=== PATIENT | male | born 1975 | race Hispanic/Latino ===

== ENCOUNTER 2017-03-01 22:02 | Inpatient (IN) | payer OTHER ==
[~2017-03-01] VITALS: Ht 157.5 cm; Wt 68.0 kg
--- NOTE | 2017-03-02 01:30 | NUR ---
PT ARRIVED ON FLOOR FROM ED AT AROUND 0105. PT IS ALERT AND ORIENTED. PT HAS BOWEL TONES PRESENT IN ALL QUADRANTS AND IS PASSING GAS. V/S ARE WDL. PT DENIES PAIN AND N/V AT THIS TIME. NO OTHER ISSUES NOTED AT THIS TIME. LR IS GOING AT 125ML/HR, NG TUBE WAS PLACED AND IS GOING AT LOW INTERMITTEN SUCTION.
--- NOTE | 2017-03-02 03:30 | NUR ---
PATIENT IN BED SLEEPING. SEEMS OKAY.
--- NOTE | 2017-03-02 05:12 | NUR ---
PT HAS BEEN ON THIS FLOOR SINCE 0105. NG TUBE OUTPUT HAS BEEN SMALL. PLEASE SEE I&O'S AT 0600. IVF LR IS GOING AT 125ML/HR. PT HAS A SOAR THROAT FROM THE NG TUBE. OTHERWISE PT DENIES PAIN AND N/V. PT HAS NORMAL BOWEL TONES IN ALL FOUR QUADRANTS. PT STATED THAT HE IS PASSING GAS. V/S WERE WDL SO FAR. NO NEW ISSUES NOTED AT THIS TIME.
--- NOTE | 2017-03-02 06:12 | NUR ---
NG TUBE OUTPUT SINCE ARRIVAL ON MS FLOOR UNTIL 0600 HAS BEEN 100ML, CLEAR TO GEEN IN COLOR.
--- NOTE | 2017-03-02 07:28 | NUR ---
RECIEVED REPORT FROM DAY SHIFT NURSE. PT RESTING IN BED. CORRECTIONAL OFFICERS AT BEDSIDE. PT DENIES NEEDS. OFFICERS STATE THEY WILL CALL IF PT NEEDS ANYTHING. NGT IN PLACE LOW INT. SUCTION. IVF INFUSING W/O DIFFICULTY.
--- NOTE | 2017-03-02 08:45 | NUR ---
PT RESTING IN BED. TWO CORRECTIONAL OFFICERS AT BEDSIDE. IVF INFUSING W/O DIFFICULTY. NGT IN PLACE, ABOUT 100CC GREEN BILE IN CANISTER. OFFERED TOILETING. PT STATES PAIN IS AT A TOLERABLE LEVEL. PT DENIES NEEDS AT THIS TIME. PT KNOWS TO ASK OFFICERS FOR NURSE.
--- NOTE | 2017-03-02 09:13 | NUR ---
PT IS RESTING IN BED SAFELY WITH RESTRAINTS ON AND TWO GUARDS IN ROOM. PT WAS GIVEN A WARM WASH CLOTH FOR FACCE AND HANDS. PT SAKED FOR FRESH ICE WATER AND SWABS
--- NOTE | 2017-03-02 09:50 | NUR ---
PT RESTING IN BED. CEPACOL ADMINISTERED FOR SORE THROAT. VERBAL ORDER GIVEN FROM DR. CLIFTON PT ABLE TO HAVE CLEAR LIQUIDS PRN COMFORT.
--- NOTE | 2017-03-02 09:57 | NUR ---
MED REC COMPLETE
--- NOTE | 2017-03-02 10:46 | NUR ---
PT RESTING IN BED. TOILETING OFFERED. FLU VACCINE ADMINISTERED L DELTOID. PT DENIES FURTHER NEEDS. CORRECTIONAL OFFICERS AT BEDSIDE.
--- NOTE | 2017-03-02 11:26 | NUR ---
PT RESTING IN BED. DENIES THE NEED FOR PAIN MEDICINE. PT ATTEMPTED TO VOID IN URINAL. PT ABLE TO VOID ABOUT 10CC OF URINE. IV BOLUS STARTED. DENIES FURTHER NEEDS. OFFICER AT BEDSIDE.
--- NOTE | 2017-03-02 12:30 | NUR ---
PT IN BED. PT ABLE TO VOID WITH URINAL. SECOND LR BOLUS STARTED. PT DENIES NEED FOR PAIN MEDICATION. OFFICER AT BEDSIDE.
--- NOTE | 2017-03-02 14:06 | NUR ---
PT AMBULATED WITH 2 CORRECTIONAL OFFICERS AROUND MS UNIT X 2. BED LINEN CHANGED. NGT SECURED TO SHIRT WITH TAPE. SCDS APPLIED. PT DENIES NEEDS AT THIS TIME. PAIN RATED 2/10 IN LOWER ABD WHICH PT STATES IS A TOLERABLE PAIN LEVEL.
--- NOTE | 2017-03-02 14:10 | NUR ---
PT IS LYING IN BED RESTING WITH EYES CLOSED, RESPERATIONS EVEN. PT AMBULATED EARLIER, 2 FULL LAPS. PT DOES NOT FEEL WELL ENOUGH TO SHOWER. PT DID NOT NEED ANYTHING ELSE AT THE MOMENT. RESTRAINTS ON AND GAURDS IN ROOM
--- NOTE | 2017-03-02 15:30 | NUR ---
PT RESTING IN BED. NGT IN PLACE. VOIDING CLEAR, PALE YELLOW. DENIES NEEDS AT THIS TIME. OFFICERS AT BEDSIDE.
--- NOTE | 2017-03-02 17:17 | NUR ---
PT RESTING IN BED. STATES HE IS, "SICK OF THE TUBE." C/O SORE THROAT, CEPACOL LOZENGE ADMINISTERED. PT STATES PAIN IS 2/10. DENIES NEED FOR PAIN MEDICATION. CORRECTIONAL OFFICERS PRESENT.
--- NOTE | 2017-03-02 18:30 | NUR ---
PT IS SITTING UP IN BED WORKING ON EATING HIS CLEAR LIQUID TRAY. PT ASKED FOR URINAL TO BE EMPTIED. RESTRAINTS ON AND GUARDS IN ROOM.
--- NOTE | 2017-03-02 18:38 | NUR ---
PT HAD AN UNEVENTFUL DAY. PT'S MAIN COMPLAINT HAS BEEN THROAT IRRITATION. PT ABLE TO HAVE CEPACOL LOZENGE AND THROAT SPRAY PRN. NGT IN PLACE PUTTING OUT GREEN CONTENTS. PT ABLE TO HAVE CLEARS PRN COMFORT. PT'S PAIN LEVEL HAS BEEN 2/10 ALL DAY. PT STATES THIS IS TOLERABLE. PT AMBULATED HALLWAY X2. VOIDING WELL. CT SHOWS POSSIBLE CHRONIC CHRON'S PT STARTED ON STEROIDS.
--- NOTE | 2017-03-02 20:00 | NUR ---
RECEIVED REPORT AT 1900. FOUND PT IN BED RESTING. PT DENIED ANY PAIN AND N/V AT THAT TIME.
--- NOTE | 2017-03-02 22:20 | NUR ---
PT HAS A TEMP OF 99.6 AT THIS TIME. OTHER V/S ARE WDL. PT HAS NORMAL BOWEL TONES IN ALL QUADRANTS AND IS PASSING GAS. NEW IV WAS STARTED IN HIS LEFT FOREARM.
--- NOTE | 2017-03-03 00:28 | NUR ---
PT IS SLEEPING AT THIS TIME.
--- NOTE | 2017-03-03 02:22 | NUR ---
PT IS SLEEPING AT THIS TIME. NG OUTPUT FROM [id number] WAS 100ML.
--- NOTE | 2017-03-03 05:20 | NUR ---
LAST TEMP WAS 99.3 AT 0200. PT DENIES PAIN IN ABD BUT HAS A SORE THROAT FROM NG TUBE. BOWEL SOUNDS ARE PRESENT IN ALL QUADRANTS AND PT IS PASSING GAS. NG TUBE HAS PUT OUT 100ML OF 0200. NO NEW ISSUSE NOTED FOR THIS PT AT THIS TIME.
--- NOTE | 2017-03-03 06:27 | NUR ---
NG TUBE OUTPUT FOR THIS SHIFT IS 200 ML. COLOR AT THIS TIME IS BROWN. IT STARTED OUT GREEN AT START OF SHIFT.
--- NOTE | 2017-03-03 09:00 | NUR ---
PATIENT UP IN ROOM. VOIDING QUANTITY SUFFICIENT, URINE APPEARS CONCENTRATED. DISCUSSED POC WITH PATIENT. PATIENT REPORTS MILD PAIN 2/10 IN ABDOMEN. NG TO SUCTION. BOWEL TONES HYPOACTIVE. ABDOMEN SOFT. GAURDS IN ROOM.
--- NOTE | 2017-03-03 12:13 | NUR ---
DR. CLIFTON ROUNDED ON PATIENT, ORDERED BOWEL STUDY. COMMUNICATED WITH BUFFING WHEEL PRESSER QUIANA. WILL BE ABLE TO START AROUND 1300. PATIENT VERBALIZED UNDERSTANDING OF CARE.
--- NOTE | 2017-03-03 15:00 | NUR ---
NG TUBE DISCONTINUED, PO MEDS ORDERED DISCUSSED POC WITH PATIENT. PATIENT UP AMBULATING IN HALLS, PROVIDED CLEAN LINEN. PATIENT REFUSED SHOWER FOR THE DAY. VS STABLE.
--- NOTE | 2017-03-03 19:26 | NUR ---
PATIENT TOLERATING PO MEDICATIONS WELL, NO COMPLAINTS OF NAUSEA. PROVIDED PATIENT WITH PUDDING, TOLERATED BITES. NO COMPLAINTS OF PAIN. UP AMBULATING WITH GAURDS. PATIENT STATES " I AM OKAY". BOWEL TONES ACTIVE THROUGHOUT. FULL BODY ASSESMENT DONE, NO NEW FINDINGS. COMPLAINS OF SORE THROAT, PROVIDED LOZENGES AND SPRAY FOR DISCOMFORT.
--- NOTE | 2017-03-03 21:19 | NUR ---
RECEIVED REPORT AT 1900. FOUND PT IN BED RESTING. PT HAS NORMAL ACTIVE BOWEL SOUNDS IN ALL QUADRANTS AND IS PASSING GAS. PT DENIES PAIN OTHERWISE AND N/V. PT STATED TO HAVE A SORE THROAT. CEPACOL HAS BEEN GIVEN. PT HAS A TEMP OF 99.2, WILL CONTINUE TO MONITOR. OTHER V/S ARE WDL.
--- NOTE | 2017-03-04 00:43 | NUR ---
PT IS SLEEPING AT THIS TIME.
--- NOTE | 2017-03-04 02:36 | NUR ---
PT IS SLEEPING. TEMP AT 0200 WAS 98.6. THERE ARE NO CHANGES FOR THIS PT.
--- NOTE | 2017-03-04 04:59 | NUR ---
PT OVERALL HAD AN UNEVENTFUL NIGHT. AT START OF SHIFT TEMP WAS 99.2. AT 0200 TEMP WAS 98.6. PT DENIES ABD PAIN AND N/V. PT HAS NORMAL ACTIVE BOWEL SOUNDS IN ALL QUADRANTS AND IS PASSING GAS. V/S ARE WDL. NO NEW ISSUES NOTED SO FAR.
--- NOTE | 2017-03-04 08:00 | NUR ---
PATIENT UP TO JOAQUIN LUCERO. REPORTS LOOSE STOOL THIS MORNING. PATIENT APPEARS TO TO BE TOLERATING FULL LIQUIDS WELL. NO COMPLAINTS OF PAIN. UP AMBULATING IN HALLS. VS STABLE. MORNING MEDICAITONS ADMINISTERED.
[2017-03-04] MEDS ORDERED: PANTOPRAZOLE SO40 MG PO (12:34)
--- NOTE | 2017-03-04 12:36 | NUR ---
DR. CLIFTON ROUNDING ON PATIENT, NEW ORDER TO DC BACK TO [facility].
[2017-03-04] MEDS ORDERED: PREDNISONE10 MG PO (12:37)
[2017-03-04] MEDS ORDERED: DELZICOL400 M1 PO (12:38)
--- NOTE | 2017-03-04 13:30 | NUR ---
REPORT PROVIDED TO [facility] NURSE AT [facility]. NEW ORDER FOR MESALIMINE TO BE FILLED FOR 3 DAYS FROM HOSPITAL. VS STABLE. SCRIPT AND MEDICAITONS WITH [facility]. DISCUSSED LOW FIBER DIET.
--- NOTE | 2017-03-05 12:15 | HP ---
[facility] [address], [place] [address] Signed DATE OF ADMISSION: 03/02/17 REASON FOR ADMISSION Incomplete bowel obstruction, possible Crohn's disease. HISTORY OF PRESENT ILLNESS This 41-year-old man is a prisoner at [facility] and was evaluated by Dr. Rony Baker late last night with complaints of abdominal pain. He had a similar episode of this a year ago with a negative workup including an ultrasound. The patient has had left upper and mid abdominal pain since yesterday without associated hematemesis. He has had vomiting, but no diarrhea or constipation. Labs done at the half-way showed a white count elevation of 11.6, glucose elevated at 158. Urinalysis essentially normal. His evaluation in the emergency room included a CT scan of the abdomen. This showed some dilated loops of small bowel and 2 areas suggestive of inflammatory change, possibly related to Crohn's disease accounting for the obstructed problem. He is admitted for further evaluation and care. Upon my review of the CT scan with Dr. Veras, there does not appear to really be inflammation of the distal ileum or terminal ileum itself. There were 2 areas for which there is narrowing and suggestion of possible stricture like change, which may be consistent with Crohn's disease, although it is not entirely certain. A normal appendix is noted. There is a hyperenhancing lesion of the liver that is only 1.5 cm, most likely a hemangioma. PAST MEDICAL HISTORY Includes an operation at age 4. This may have been "for worms." He was in [place] at that time and is a [place]. SOCIAL HISTORY He is incarcerated at [facility]. He has never smoked and did not use alcohol. REVIEW OF SYSTEMS He denies any shortness of breath or chest pain per se. He has had no dysphagia, hematemesis or hematuria. His abdominal pain is somewhat diffuse, but mostly central and slightly in the left abdomen. PHYSICAL EXAM GENERAL: Dark skin man who looks to be in mild discomfort. HEENT: Mucous membranes are slightly dry. Trachea is midline. CHEST: Clear. HEART: Regular without murmur. Electronically Signed By: HUGO CLIFTON MD 03/05/17 1215 PATIENT NAME: HANDY LOWE HISTORY AND PHYSICAL DATE OF : 79 PHYSICIAN: HUGO CLIFTON MD REPORT #: [id number] REPORT IS CONFIDENTIAL AND NOT TO BE RELEASED WITHOUT AUTHORIZATION [facility] [address] [place] [id number] Signed ABDOMEN: Nondistended. Palpation reveals no focal tenderness. There is no ascites. EXTREMITIES: Show no clubbing, cyanosis, or edema. LAB STUDIES Include a white count of 11.7, hematocrit 46.9, platelets 187,000. Chem profile showed sodium of 140, potassium 3.6, chloride 106, carbon dioxide 25, creatinine 0.77, glucose 124. Liver enzymes from March 01, 2017 are normal. ASSESSMENT I reviewed the CT scan in detail. There is a possibility this may represent Crohn's disease and incomplete obstruction on that basis. He has had abdominal surgery in the distant past a t age 4. It is not entirely clear what that was for; when he says worms, it is certainly a possibility and would have been related to helminthic obstruction. He is uncertain as to what exactly was done at operation. I have recommended intravenous fluids, IV steroid use, ulcer prophylaxis, pain control and continued nasogastric tube decompression. He may benefit from a small-bowel follow-through to better characterize the possibility of a stricture or a true obstruction. If this represents a Crohn's source of bowel obstruction and anti-inflammatories to allow for resolution of the edema and swelling of the obstructed segment are appropriate and hydrocortisone will be employed for that purpose. We discussed this and reviewed together. MD STARR Packer/Flo /[id number] cc: Carl Cooper MD Electronically Signed By: HUGO CLIFTON MD 03/05/17 1215 PATIENT NAME: HANDY LOWE HISTORY AND PHYSICAL DATE OF : 79 PHYSICIAN: HUGO CLIFTON MD REPORT #: [id number] REPORT IS CONFIDENTIAL AND NOT TO BE RELEASED WITHOUT AUTHORIZATION
--- NOTE | 2017-03-07 15:15 | DS ---
[facility] [address] [place], [place] [address] Signed DATE OF DISCHARGE: 03/04/17 REASON FOR ADMISSION This 41-year-old man is a prisoner at [facility] and evaluated by Dr. Rony Baker late in the night with complaints of abdominal pain. A similar episode a year ago was negative in its workup included an ultrasound. The patient had left upper and mid abdominal pain since the day before current admission without associated hematemesis. He has had vomiting, but no diarrhea or constipation. Labs done in the [facility] showed a white count elevation of 11.6, glucose elevated at 158. Urinalysis essentially normal. A CT scan of the abdomen in emergency room during the course of his workup showed dilated loops of small bowel consistent with probable small-bowel obstruction and 2 are as suggestive of inflammatory change possibly related to Crohn's disease. He is admitted for further evaluation and care. Close review of the CT scan with Dr. Veras showed 2 areas for which there was narrowing suggestive of possible stricture like change. These may be consistent with Crohn's disease. At notable the patient had undergone operation at age 4 in [place]. He said that the operation was "for worms." He is uncertain if bowel resection had been undertaken at that time. The patient also notes in hind site an episode in 2000 of "bowel obstruction," which he had 3 days of abdominal pain, distention and so forth following the ingestion of pork and [employer]. He did not require hospitalization for that he says. PERTINENT PHYSICAL GENERAL: man who looked in mild discomfort. His command of the Cambodian language was reasonably good. HEENT: Mucous membranes are slightly dry. Trachea midline. CHEST: Clear. HEART: Regular without murmur. ABDOMEN: Nondistended. Palpation showed no focal tenderness. There is no ascites. EXTREMITIES: No clubbing, cyanosis, or edema. LAB STUDIES: As described. HOSPITAL COURSE The patient had placed a nasogastric tube which quickly decompressed the stomach and did improve his symptoms quite a bit. He is considered likely to have incomplete small bowel obstruction related to possible Crohn's disease. He is maintained with fluid resuscitation followed by maintenance intravenous fluids, nasogastric tube decompression Electronically Signed By: HUGO CLIFTON MD 03/07/17 1515 PATIENT NAME: HANDY LOWE DISCHARGE SUMMARY DATE OF : 79 PHYSICIAN: HUGO CLIFTON MD REPORT #: [id number] REPORT IS CONFIDENTIAL AND NOT TO BE RELEASED WITHOUT AUTHORIZATION [facility] [address] [place], [place] [address] Signed and serial examination. Follow-up abdominal x-ray showed improvement of his situation. He did have the output of stool indicating possible return of bowel function. He had been started on Hydrocortisone 100 mg IV q.8 hours while nasogastric tube was in. He underwent a small-bowel follow-through at this point through the nasogastric tube, which showed 2 areas of rather long narrowed small bowel, but no sign of proximal obstruction at that point. His nasogastric tube was removed and he was begun on a liquid diet and advanced to full liquid diet which he tolerated well. He was initiated on Prednisone 30 mg p.o. daily and taken off Hydrocortisone intravenously administered. He was given side of protection of the stomach with Protonix 40 mg daily and initiated on Mesalamine 800 mg p.o. t.i.d. He had progressive improvement, tolerating oral intake and production of stool. He is nontender and shows no clinical evidence of obstruction at this time. It is my intention that he be weaned from his steroid therapy over 3 weeks while Mesalamine is initiated. He will maintain ulcer prophylaxis with Protonix. Would have him stay a low-fiber diet until I see him back in the office. A colonoscopy would be appropriate to assess for inflammatory bowel disease, if nothing else with intubation of the ileum as it was somewhat suspicious on CT scan, though not markedly so. It is a supposition on my part that this obstructive process was related to Crohn's disease, but it is admitted that he did have laparotomy in childhood (midline incision arou nd the umbilicus) and the possibility of adhesion related obstructive still is possible. This is of course despite what appeared to be long segment incomplete occluding strictures of bowel x2. FOLLOWUP PLANS I will see him in the [facility] in the next few weeks. He will maintain a low-fiber diet in the meantime, and his medications as described. DISCHARGE DIAGNOSES Small bowel obstruction possibly related to 2 segmental strictures of small bowel likely related to Crohn's disease (unproven and uncertain). History of midline laparotomy at age 4 for abdominal operation related to "worms" ([place]). Incarceration [facility]. Electronically Signed By: HUGO CLIFTON MD 03/07/17 7135 PATIENT NAME: HANDY LOWE DISCHARGE SUMMARY DATE OF : 79 PHYSICIAN: HUGO CLIFTON MD REPORT #: [id number] REPORT IS CONFIDENTIAL AND NOT TO BE RELEASED WITHOUT AUTHORIZATION [address] [address] Signed MD STARR Packer/Modl /[id number] cc: MD Rony Barros MD Electronically Signed By: HUGO CLIFTON MD 03/07/17 1515 PATIENT NAME: HANDY LOWE DISCHARGE SUMMARY DATE OF : 79 PHYSICIAN: HUGO CLIFTON MD REPORT #: [id number] REPORT IS CONFIDENTIAL AND NOT TO BE RELEASED WITHOUT AUTHORIZATION
== END 2017-03-04 13:40 | disposition home or self-care (01) | DRG 386 ==
LOC: ED 22:02 → MS 22:04
PROVIDERS: ADMIT Surgery
PROC: 0D9670Z Drainage of Stomach with Drainage Device, Via Natural or Artificial Opening (ICD-10-PCS; principal; 2017-03-02)
DX: K50.012 Crohn's disease of small intestine with intestinal obstruction (principal)
CPT/HCPCS: 36415; 71010; 74000; 74177; 74250; 80048; 80053; 83690; 85025; 86140; 90674; 94762; 96361; 96374; 99285; G0008; J1644; J1720; J2405; J7030; J7120; J7512; Q9967